=== PATIENT | male | born 1955 | race Caucasian/White ===

== ENCOUNTER → 2017-01-15 | Outpatient (CLI) | payer MEDICARE, BC ==
[~2017-01-15] MED LIST: ASPERCREME90 GM/TUBE TOP; BACTROBAN N1 GM/TUBE; BUTRANS1 EAC1 TOP; CELEBREX100 MG PO; DESYREL100 MG PO; DISALCID500 MG PO; DOXYCYCLINE100 MG PO; LASIX40 MG PO; LASIX80 MG PO; LIORESAL10 MG PO; LOPRESSOR50 MG PO; MOBIC15 MG PO; MORPHINE S20 MG/5 ML IL; MOVANTIK25 MG PO; NEURONTIN600 MG PO; OXYGEN M-15; PERCOCET 10-321 EACH PO; PERCOCET 5-3251 EACH PO; PRILOSEC20 MG PO; PROVENTIL OR V6.7 GM INH; SINGULAIR10 MG PO; SKELAXIN800 MG PO; SYMBICORT 16010.2 GM INH; TYLENOL EXTRA500 MG PO; ULTRAM50 MG PO; ZOCOR20 MG PO; ZOLOFT50 MG PO
== END | disposition disaster alternative care site (69) ==
LOC: GRAD 08:34
DX: M40.03 Postural kyphosis, cervicothoracic region (principal); M48.02 Spinal stenosis, cervical region; M54.2 Cervicalgia; M54.9 Dorsalgia, unspecified; R20.0 Anesthesia of skin; Z98.1 Arthrodesis status

== ENCOUNTER → 2017-03-02 | Outpatient (CLI) | payer MEDICARE, BC | END | disposition disaster alternative care site (69) | LOC: GRAD 07:42 | DX: M54.2 Cervicalgia (principal); M54.9 Dorsalgia, unspecified; M40.03 Postural kyphosis, cervicothoracic region; R20.0 Anesthesia of skin; Z98.1 Arthrodesis status ==

== ENCOUNTER → 2017-04-14 | Outpatient (CLI) | payer MEDICARE, BC ==
--- NOTE | ~2017-04-14 | PUL ---
PATIENT'S NAME: JAYASHREE CHRISTIE [facility] AGE: 61 Y [address] ROOM: [place] [address] LOCATION: [facility] ADMIT DATE: 04/14/2017 Pulmonary DISCHARGE DATE: FAMILY PHYSICIAN: CAMPBELL FELIX MD ATTENDING PHYSICIAN: CAMPBELL FELIX NAME OF PROCEDURE: Home Sleep Study DATE OF PROCEDURE: 04/14/17 TECH: Diony Buenrostro [facility] SUMMARY: Patient underwent home sleep testing using a type III device and was studied for 6 hours 10 minutes. In that time there were 5 apneas and 53 hypopneas for an apnea/hypopnea index mildly elevated at 9.4 events per hour. The patient spent the entire night sleeping supine, essentially. Oxygen saturations ranged from 82-91%. Heart rate ranged from 46 to 89 beats per minute. Saturations were below 88% for more than 5 minutes. IMPRESSION: Mild obstructive sleep apnea. PLAN: Patient will receive results from the ordering provider. MD LISA PINON/ /[id number] dtt: 04/23/17 0949 Keshav David E. dtd: 04/19/17 1600
== END | disposition disaster alternative care site (69) ==
LOC: GSLP 03-26 08:20
DX: G47.10 Hypersomnia, unspecified (principal); G47.33 Obstructive sleep apnea (adult) (pediatric)
CPT/HCPCS: G0399